=== PATIENT | female | born 1995 | race Caucasian/White ===

== ENCOUNTER → 2019-12-09 | Outpatient (CLI) | payer OTHER ==
[2019-12-09 11:25] LABS: BASO % 0.9 % (0.0-1.0); EOS # 0.1 10^3/uL (0.0-0.5); HEMATOCRIT 39.5 % (36.0-47.0); HEMOGLOBIN 12.2 g/dl (12.0-15.5); LYMPH # 1.4 10^3/uL (1.5-5.0); MEAN CORPUSCULAR HEMOGLOBIN 30.3 pg (27.0-33.0); MEAN CORPUSCULAR HGB CONC 30.9 g/dl (32.0-36.5); MEAN CORPUSCULAR VOLUME 98.3 fl (80.0-96.0); MONO # 0.4 10^3/uL (0.0-0.8); MONO % 10.1 % (0.0-5.0); NEUTROPHILS # 1.6 10^3/uL (1.5-8.5); NEUTROPHILS % 45.4 % (36.0-66.0); PLATELET COUNT, AUTOMATED 218 10^3/uL (150-450); RED BLOOD COUNT 4.02 10^6/uL (4.00-5.40); WHITE BLOOD COUNT 3.5 10^3/uL (4.0-10.0)
== END ==
LOC: M LAB 10:19
PROVIDERS: ATTEND Specialist
DX: E04.1 Nontoxic single thyroid nodule (principal); R59.0 Localized enlarged lymph nodes

== ENCOUNTER → 2019-12-12 | Outpatient (CLI) | payer OTHER ==
--- NOTE | 2019-12-17 07:58 | REP ---
THYROID ULTRASOUND HISTORY: Thyroid nodule. FINDINGS: Real-time sonographic evaluation of thyroid performed. Right lobe measures 5.6 x 1.7 x 1.5 cm and left lobe 5.0 x 1.4 x 1.3 cm. There is a relatively isoechoic nodule in the mid right lobe which is solid and somewhat heterogeneous in echotexture. There are multiple punctate echogenic foci in the nodule. It measures 1.5 x 0.7 x 1.0 cm. IMPRESSION: Heterogeneous nodule mid right lobe thyroid containing punctate echogenic foci. Maximum diameter is 1.5 cm. According to TI-RADS criteria, this is a TR4 lesion for which ultrasound guided FNA is recommended. MTDD
== END ==
LOC: M RAD 15:11
PROVIDERS: ATTEND Specialist
DX: E04.1 Nontoxic single thyroid nodule (principal)